=== PATIENT | female | born 1960 | race Caucasian/White ===

== ENCOUNTER → 2018-02-24 | Outpatient (CLI) | payer BC ==
[2018-02-24 23:19] LABS: Immunoglobulin E 6.85 IU/mL (0.00-114.00)
[2018-02-26 10:55] LABS: Alt. alternata IgE Class CLASS 0; Alternaria alternata IgE <0.35 kU/L (<0.35); Asperg. fumagatus IgE <0.35 kU/L (<0.35); Asperg. fumagatus IgE Class CLASS 0; Aureo. pullulans IgE <0.35 kU/L (<0.35); Avocado Class CLASS 0; Banana IgE Class CLASS 0; Birch(Com.Silvr) IgE <0.35 kU/L (<0.35); Birch(Com.Silvr) IgE Class CLASS 0; Candida albicans IgE Class CLASS 0; Cat Epith & Dander IgE <0.35 kU/L (<0.35); Cat Epith & Dander IgE Class CLASS 0; Clad herbarum IgE <0.35 kU/L (<0.35); Cockroach IgE <0.35 kU/L (<0.35); Com. Pigweed IgE <0.35 kU/L (<0.35); Com. Pigweed IgE Class CLASS 0; Cottonwood IgE <0.35 kU/L (<0.35); Cow's Milk IgE Class CLASS 0; Dermato. Pteronyssinus IgE <0.35 kU/L (<0.35); Dermato. farinae IgE <0.35 kU/L (<0.35); Dermato. farinae IgE Class CLASS 0; Dog Dander IgE <0.35 kU/L (<0.35); Egg White IgE <0.35 kU/L (<0.35); English Plantain IgE Class CLASS 0; Epicoccum purpurascens Class CLASS 0; Epicoccum purpurascens IgE <0.35 kU/L (<0.35); Hazelnut IgE <0.35 kU/L (<0.35); Hazelnut IgE Class CLASS 0; Johnson Grass IgE Class CLASS 0; Kiwi IgE <0.35 kU/L (<0.35); Lamb's Quarter IgE <0.35 kU/L (<0.35); Lamb's Quarter IgE Class CLASS 0; Maple (Box Elder) IgE <0.35 kU/L (<0.35); Maple (Box Elder) IgE Class CLASS 0; Mucor racemosus IgE <0.35 kU/L (<0.35); Mucor racemosus IgE Class CLASS 0; Oak IgE <0.35 kU/L (<0.35); Peanut IgE <0.35 kU/L (<0.35); Potato IgE <0.35 kU/L (<0.35); Potato IgE Class CLASS 0; Rhizopus nigricans IgE <0.35 kU/L (<0.35); S.rostrata/Helminth Class CLASS 0; S.rostrata/Helminth IgE <0.35 kU/L (<0.35); Soybean IgE <0.35 kU/L (<0.35); Sycamore(Mpl.Lf) IgE <0.35 kU/L (<0.35); Timothy Grass IgE <0.35 kU/L (<0.35); Walnut Tree IgE <0.35 kU/L (<0.35); Walnut Tree IgE Class CLASS 0; White Ash IgE Class CLASS 0
== END ==
LOC: LABWHC1 11:47
PROVIDERS: ATTEND Nurse Practitioner Family
DX: L50.0 Allergic urticaria (principal); R21 Rash and other nonspecific skin eruption; C96.20 Malignant mast cell neoplasm, unspecified
CPT/HCPCS: 36415; 82785; 83520; 84443; 85652; 86001; 86003; 86038

== ENCOUNTER → 2018-03-08 | Outpatient (CLI) | payer BC ==
[2018-03-08 11:22] LABS: Basophils # (A) 0.1 k/uL (0-0.2); Basophils % (A) 1 %; Eosinophils # (A) 0.2 k/uL (0-0.7); Eosinophils % (A) 4 %; HCT 41.9 % (34.0-46.0); Lymphocytes # (A) 1.3 k/uL (1.0-4.8); Lymphocytes % (A) 31 %; MCH 34.1 pg (25.0-35.0); MCHC 33.4 g/dL (31.0-37.0); MCV 102.1 fL (80.0-100.0); Macrocytosis Slight; Mean Platelet Volume 6.3; Monocytes # (A) 0.3 k/uL (0-1.0); Monocytes % (A) 7 %; Neutrophils # (A) 2.2 k/uL (1.3-7.7); Neutrophils % (A) 53 %; Platelet Count 290 k/uL (150-450); RDW 13.9 % (11.5-15.5)
[2018-03-08 16:55] LABS: T4, Free (Free Thyroxine) 1.2 ng/dL (0.80-1.80)
[2018-03-08 17:16] LABS: Albumin 4.7 g/dL (3.80-4.90); Albumin/Globulin Ratio 2.76 (1.20-2.10); Anion Gap 10.6 mmol/L (4.00-12.00); Calcium 9.5 mg/dL (8.7-10.3); Carbon Dioxide 25.4 mmol/L (21.6-31.8); Globulin 1.7 g/dL (2.1-3.7); LDL Cholesterol,Calculated 163.6 mg/dL (0.0-131.0); Potassium 4.1 mmol/L (3.5-5.5); Total Bilirubin 0.6 mg/dL (0.2-1.2); Total Protein 6.4 g/dL (6.2-8.2); VLDL Calculation 15.4 mg/dL (5.00-40.00)
== END | disposition home or self-care (01) ==
LOC: LABWHC1 10:32
PROVIDERS: ATTEND Midwife
DX: Z00.00 Encounter for general adult medical examination without abnormal findings (principal); D72.89 Other specified disorders of white blood cells
CPT/HCPCS: 36415; 80053; 80061; 82306; 83088; 84439; 84443; 85025